=== PATIENT | male | born 1945 | race Caucasian/White ===

== ENCOUNTER 2018-06-11 07:20 | Day surgery (SDC) | payer MEDICARE, OTHER ==
[~2018-06-11] VITALS: Ht 167.7 cm; Wt 80.0 kg
[2018-06-11] VITALS (11 sets, daily range): BP systolic 115–164; BP diastolic 67–87; PULSE 45–61; TEMP 97.9
[2018-06-11 08:23] LABS: HEMATOCRIT 42.5 % (42.0-52.0); HEMOGLOBIN 14.5 g/dl (13.5-18.0); MEAN CELL VOLUME 88 fl (80.0-100.0); MEAN CORPUSCULAR HEMOGLOBIN 30 pg (27.0-31.0); MEAN CORPUSCULAR HGB CONC 34 g/dl (33.0-37.0); MEAN PLATELET VOLUME 10.4 fl (7.4-10.4); PLATELET COUNT 156 K/mm3 (130-400); RED BLOOD COUNT 4.84 M/mm3 (4.20-5.60); REDCELL DISTRIBUTION WIDTH-CV 14.3 % (11.5-14.5)
[2018-06-11] MEDS ORDERED: PROSCAR 5MG5 MG PO (08:28)
[2018-06-11] MEDS ORDERED: FLOMAX 0.40.4 MG/CAP PO (08:29)
[2018-06-11] MEDS ORDERED: AMBIEN 10MG10 MG PO (08:29)
[2018-06-11] MEDS ORDERED: NITROSTAT0.4 MG/TAB SL (08:30)
[2018-06-11] MEDS ORDERED: ZOCOR 40MG40 MG PO (08:30)
[2018-06-11] MEDS ORDERED: COZAAR100 MG PO ×2 (08:31→11:47)
[2018-06-11] MEDS ORDERED: COREG 25MG25 MG/TAB PO (08:31)
[2018-06-11] MEDS ORDERED: ASPIRIN 32325 MG/TAB PO ×2 (08:32→11:47)
[2018-06-11] MEDS ORDERED: NORVASC 5MG5 MG/TAB PO (08:33)
[2018-06-11] MEDS ORDERED: PRIL40 PO (08:33)
[2018-06-11] MEDS ORDERED: SINGULAIR 110 MG/TAB PO (08:34)
[2018-06-11 08:36] LABS: CALCIUM 9.4 mg/dL (8.4-10.2); CREATININE, serum 0.88 mg/dL (0.66-1.25); POTASSIUM 4.1 mmol/L (3.4-5.0)
[2018-06-11] MEDS ORDERED: [UNRECOGNIZED DRUG - OTHER] OU (08:36)
[2018-06-11] MEDS ORDERED: ALPHAGAN OPHTH D5 ML OS (08:37)
[2018-06-11] MEDS ORDERED: OMEGA-31 SGL (08:38)
[2018-06-11] MEDS ORDERED: CALCIUM CITRAT950 MG (08:40)
[2018-06-11] MEDS ORDERED: [UNRECOGNIZED DRUG - OTHER] (08:41)
[2018-06-11] MEDS ORDERED: FLONASEALLERGY NS (08:42)
[2018-06-11] MEDS ORDERED: NAPROSYN 2250 MG/TAB PO (08:42)
[2018-06-11 08:53] LABS: INR 1.1 (0.8-3.0)
--- NOTE | 2018-06-11 10:52 | NUR ---
ALL MEDS GIVEN VIA VERBAL WITH READBACK. SEE MERGE FOR ADMIN TIMES.
--- NOTE | 2018-06-11 11:45 | NUR ---
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 CALL LIGHT IN REACH, VOIDED 600CC URINAL. REVIEWED PT ABOUT BEDREST AND LIFTING HEAD OFF PILLOW, NEEDS REMINDED FREQUENTLY. TAKES JUICE
[2018-06-11] MEDS ORDERED: PLAVIX 75MG TAB75 MG PO (11:49)
[2018-06-11] MEDS ORDERED: IMDUR 30MG30 MG/TAB PO (11:49)
[2018-06-11] MEDS ORDERED: PROTONIX 40MG T40 MG PO (11:49)
--- NOTE | 2018-06-11 12:30 | NUR ---
pt uses urinial, voided 600cc yellow urine, dozes in bed, no c/o
--- NOTE | 2018-06-11 15:00 | NUR ---
pt ordered meal, eats meal, in room, no c/o or changes, used urinal x1
--- NOTE | 2018-06-11 15:45 | NUR ---
pt sat on side of bed tolerated well, walked in halls with no changes on site. IV d'cd intact, pt up in room, reviewed discharged inst. with pt and , with all med changes and rx to [facility] [place] [facility], information given on all new meds, also has follow up appt and to call office in a week on b/p checks and sob issues. reviewed activity with pt on heart cath with verbal understanding. pt dressed and discharged at 1600 via w/c to car with
== END 2018-06-11 16:05 | disposition home or self-care (01) ==
LOC: COL.CAR 07:20
PROVIDERS: Internal Medicine Cardiovascular Disease
DX: I25.119 Atherosclerotic heart disease of native coronary artery with unspecified angina pectoris (principal); R94.39 Abnormal result of other cardiovascular function study; I10 Essential (primary) hypertension; N40.0 Benign prostatic hyperplasia without lower urinary tract symptoms; E78.5 Hyperlipidemia, unspecified; Z95.1 Presence of aortocoronary bypass graft; Z95.5 Presence of coronary angioplasty implant and graft; Z88.1 Allergy status to other antibiotic agents; Z79.82 Long term (current) use of aspirin; Z88.2 Allergy status to sulfonamides; Z87.891 Personal history of nicotine dependence
CPT/HCPCS: J1644; J2250; J3010; Q9967

== ENCOUNTER 2020-04-27 06:58 | Day surgery (SDC) | payer MEDICARE, OTHER ==
[~2020-04-27] VITALS: Ht 168.9 cm; Wt 79.1 kg
[2020-04-27] VITALS (12 sets, daily range): BP systolic 126–151; BP diastolic 73–94; PULSE 64–82; TEMP 98.1
[~2020-04-27 06:58] MED LIST: ALPHAGAN OPHTH D5 ML OS; AMBIEN 10MG10 MG PO; ASPIRIN 32325 MG/TAB PO; CALCIUM CITRAT950 MG; COREG 25MG25 MG/TAB PO; COZAAR100 MG PO; FLOMAX 0.40.4 MG/CAP PO; FLONASEALLERGY NS; IMDUR 30MG30 MG/TAB PO; NAPROSYN 2250 MG/TAB PO; NITROSTAT0.4 MG/TAB SL; NORVASC 5MG5 MG/TAB PO; OMEGA-31 SGL; PLAVIX 75MG TAB75 MG PO; PRIL40 PO; PROSCAR 5MG5 MG PO; PROTONIX 40MG T40 MG PO; SINGULAIR 110 MG/TAB PO; ZOCOR 40MG40 MG PO; [UNRECOGNIZED DRUG - OTHER]; [UNRECOGNIZED DRUG - OTHER] OU
[2020-04-27 08:01] LABS: HEMATOCRIT 45.9 % (42.0-52.0); MEAN CELL VOLUME 89 fl (80.0-100.0); MEAN CORPUSCULAR HEMOGLOBIN 31 pg (27.0-31.0); MEAN CORPUSCULAR HGB CONC 35 g/dl (33.0-37.0); MEAN PLATELET VOLUME 10.3 fl (7.4-10.4); PLATELET COUNT 151 K/mm3 (130-400); RED BLOOD COUNT 5.14 M/mm3 (4.20-5.60)
[2020-04-27 08:03] LABS: INR 1.1 (0.8-3.0); PROTHROMBIN TIME 12.6 SECONDS (9.7-12.8)
[2020-04-27 08:10] LABS: CALCIUM 9.5 mg/dL (8.4-10.2); CREATININE, serum 0.77 (0.66-1.25); POTASSIUM 4.2 mmol/L (3.4-5.0)
[2020-04-27] MEDS ORDERED: PLAVIX 75MG TAB75 MG PO (08:19)
[2020-04-27] MEDS ORDERED: ASPIRIN 81M81 MG/TA2 PO (08:19)
[2020-04-27] MEDS ORDERED: PROTONIX 40MG T40 MG PO (08:23)
[2020-04-27] MEDS ORDERED: COZAAR 50MG50 MG/TAB PO (08:31)
[2020-04-27] MEDS ORDERED: MOBIC15 MG PO (08:34)
[2020-04-27] MEDS ORDERED: ZEBETA10 MG PO (08:35)
[2020-04-27] MEDS ORDERED: TYLENOL 8 HR PO (08:36)
[2020-04-27] MEDS ORDERED: PROCTOCREAM-HC2.5% RC (08:37)
[2020-04-27] MEDS ORDERED: PREVIDENT DT (08:38)
[2020-04-27] MEDS ORDERED: RECLAST5 MG/100 M IV (08:39)
[2020-04-27] MEDS ORDERED: PEPCID AC 10MG10 MG PO (08:40)
[2020-04-27] MEDS ORDERED: BENADRYL25 M2 PO (08:41)
[2020-04-27] MEDS ORDERED: PREDNISONE20 MG PO ×2 (08:41→10:58)
--- NOTE | 2020-04-27 09:00 | NUR ---
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
--- NOTE | 2020-04-27 09:31 | NUR ---
SEE MEREOLGA LIDIA FOR ALL MEDICATION ADMINISTRATION TIMES, INTRA AND POST SEDATION ASSESSMENTS
--- NOTE | 2020-04-27 10:38 | NUR ---
Pt returned from procedure,report from MARYAM Serrano.
--- NOTE | 2020-04-27 15:00 | NUR ---
Discharge instructions given to pt.Pt verbalizes understanding.INT removed,catheter tip intact.Pt escorted out via wheelchair by this nurse.
== END 2020-04-27 15:54 | disposition home or self-care (01) ==
LOC: COL.CAR 06:58
PROVIDERS: Internal Medicine Cardiovascular Disease
DX: I25.110 Atherosclerotic heart disease of native coronary artery with unstable angina pectoris (principal); Z95.1 Presence of aortocoronary bypass graft; I10 Essential (primary) hypertension; E78.00 Pure hypercholesterolemia, unspecified; Z53.8 Procedure and treatment not carried out for other reasons; Z88.1 Allergy status to other antibiotic agents; Z88.3 Allergy status to other anti-infective agents; Z91.040 Latex allergy status
CPT/HCPCS: C1760; C1894; J1644; J2250; J3010